=== PATIENT | female | born 1955 | race Caucasian/White ===

== ENCOUNTER 2020-09-21 12:38 | Emergency (ER) | payer OTHER ==
[~2020-09-21] VITALS: Ht 167.6 cm; Wt 77.6 kg
[2020-09-21 12:50] VITALS: Ht 167.6 cm; Wt 77.6 kg
[2020-09-21 14:33] VITALS: BP 116/62
== END 2020-09-21 14:43 | disposition home or self-care (01) ==
LOC: ED 12:38
DX: S01.81XA Laceration without foreign body of other part of head, initial encounter (principal)
CPT/HCPCS: J2001